=== PATIENT | male | born 1980 | race Caucasian/White ===

== ENCOUNTER 2017-05-14 00:22 | Emergency (ER) | payer BC ==
[~2017-05-14] VITALS: Ht 193 cm; Wt 107.0 kg
[~2017-05-14 00:22] MED LIST: CYCL10TA PO; LISI-515; MELO7.5T27 PO
[2017-05-14 00:25] VITALS: BP 146/99; PULSE 79; RESP 16; TEMP 98.1; O2SAT 96
[2017-05-14] MEDS ORDERED: BACL10TA PO (01:06)
[2017-05-14] MEDS ORDERED: MEDR4PAK PO (01:06)
--- NOTE | 2017-05-14 01:12 | PD ---
HPI Chief Complaint: Back/ Neck Pain or Injury Time Seen by Provider: 01:05 Travel History International Travel<30 days: No Contact w/Intl Traveler<30days: No Traveled to known affect area: No History of Present Illness HPI This is a 36-year-old male with history of chronic lower back pain who presents for evaluation of lower back pain. He describes a aching/spasming pain in his lower back that radiates down the thighs with associated paresthesias in the thighs. Symptoms are constant, worse with movement. Denies any bowel or bladder incontinence, saddle anesthesia, abdominal pain, nausea or vomiting, acute trauma. The patient recently saw neurosurgeon Dr. Ferguson in consultation on April 29. He was placed on meloxicam and Flexeril and reportedly has appointment for epidural injection in one week. He had an MRI of the lumbar spine performed on April 25 revealing "L4 to L5: Mild disc bulge with facet hypertrophy. Mild multifactorial spinal stenosis and foraminal stenosis. Posterior spondylolisthesis with moderate to severe discogenic disease, mild disc bulge, 5 mm posterior midline disc herniation." He reports that he has been using a meloxicam as prescribed but the Flexeril causes sedation so he has not been using it. He has no other complaints at this time. 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, SPINAL STENOSIS) Tetanus Vaccination: Unknown Influenza Vaccination: No Past Surgical History Surgical History: No Previous Surgery Social History Alcohol Use: No Tobacco Use: No Substance Use: No Allergies-Medications (Allergen,Severity, Reaction): Coded Allergies: No Known Allergies (Unverified , 04/29/17) Reported Meds & Prescriptions Reported Meds & Active Scripts Active Baclofen 10 Mg Tab 10 Mg PO Q8HR 10 Days Medrol Dosepak (Methylprednisolone) 4 Mg Dspk 4 Mg PO DIRECTED Per Pharmacist direction Flexeril (Cyclobenzaprine HCl) 10 Mg Tab 10 Mg PO TID Meloxicam 7.5 Mg Tab 7.5 Mg PO BID Reported Lisinopril 20 Mg Tab Review of Systems Except as stated in HPI: all other systems reviewed are Neg Physical Exam Narrative GENERAL: Well-nourished male in no acute distress SKIN: Warm and dry. HEAD: Atraumatic. Normocephalic. CARDIOVASCULAR: Regular rate and rhythm. No murmur appreciated. RESPIRATORY: No accessory muscle use. Clear to auscultation. Breath sounds equal bilaterally. GASTROINTESTINAL: Abdomen soft, non-tender, nondistended. Hepatic and splenic margins not palpable. MUSCULOSKELETAL: No obvious deformities generalized lumbar paravertebral musculature tenderness without guarding. 5 out of 5 muscle strength in lower extremities bilaterally. NEUROLOGICAL: Awake and alert. No obvious cranial nerve deficits. Motor grossly within normal limits. Normal speech. PSYCHIATRIC: Appropriate mood and affect; insight and judgment normal. Data Data Last Documented VS Vital Signs Date Time Temp Pulse Resp B/P (MAP) Pulse Ox O2 Delivery O2 Flow Rate FiO2 05/14/17 00:25 98.1 79 16 146/99 (115) 96 Orders Orders Ketorolac Inj (Toradol Inj) (05/14/17 01:15) Dexamethasone Inj (Decadron Inj) (05/14/17 01:15) MDM Medical Decision Making Medical Screen Exam Complete: Yes Emergency Medical Condition: Yes Medical Record Reviewed: Yes Differential Diagnosis Herniated nucleus pulposus, spinal stenosis, spondylolisthesis, muscle spasm, cauda equina syndrome Narrative Course 36-year-old male with history of spinal stenosis, lumbar disc bulge, spondylolisthesis, chronic lower back pain, presents with an acute exacerbation of his chronic lower back pain. He has no red flag symptoms. The patient will be treated symptomatically. He is driving himself home tonight so sedating medications will be avoided. He will be given a dose of Decadron and Toradol here. He'll be discharged with Medrol Dosepak and baclofen to use in place of Flexeril. He is encouraged to follow-up with Dr. Ferguson as scheduled. Stable for discharge. Referrals: Hector Ferguson MD Additional Instructions: Medication as prescribed. Do not drive or drink alcohol when taking baclofen. Take meloxicam as prescribed. Avoid strenuous activity, heavy lifting. Follow- up with Dr. Ferguson. Return for any emergent medical conditions. Med/Other Pt SpecificInfo: Prescription(s) given Scripts Baclofen (Baclofen) 10 Mg Tab 10 MG PO Q8HR for 10 Days, TAB 0 Refills Prov: Sangeeta Youssef MD 05/14/17 Methylprednisolone Dosepak (Medrol Dosepak) 4 Mg Dspk 4 MG PO DIRECTED, #1 DSPK 0 Refills Per Pharmacist direction Prov: Sangeeta Youssef MD 05/14/17 Disposition: 01 DISCHARGE HOME Condition: Stable Anuj Steward May 14, 2017 01:12
[2017-05-14] MEDS ORDERED: KETOROLAC TROMETHAMINE 60 MG/2 ML (IM) VIAL IM ONE (01:15)
[2017-05-14] MEDS ORDERED: DEXAMETHASONE SOD PHOS 4 MG/ML VIAL IM ONE (01:15)
== END 2017-05-14 01:49 | disposition home or self-care (01) ==
LOC: NEPD 00:22
DX: M54.5 Low back pain (principal); G89.29 Other chronic pain; Z79.899 Other long term (current) drug therapy
CPT/HCPCS: 96372; 99284; J1100; J1885